=== PATIENT | female | born 1990 | race Caucasian/White ===

== ENCOUNTER 2018-08-28 12:48 | Emergency (ER) | payer MEDICAID, SELFPAY | END 2018-08-28 13:04 | disposition home or self-care (01) | LOC: BURERS 12:48 | DX: K04.7 Periapical abscess without sinus (principal) | CPT/HCPCS: 99282 ==

== ENCOUNTER 2024-12-14 13:41 | Emergency (ER) | payer SELFPAY ==
[2024-12-14 15:19] LABS: #Basophils 0.1 thou/uL (0.0-0.2); #Eosinophils 0.8 thou/uL (0.0-0.7); #Lymphocytes 1.8 thou/uL (1.20-3.40); #Monocytes 0.6 thou/uL (0.11-0.59); #Neutrophils 6.5 thou/uL (1.40-6.50); %Basophils 1.4 % (0.0-1.0); %Eosinophils 8.5 % (0.0-10.0); %Lymphocytes 18.5 % (21.0-51.0); %Monocytes 6.0 % (0.0-10.0); %Neutrophils 65.6 % (42.0-75.0); Hematocrit 26.0 % (36.0-47.0); Hemoglobin 7.7 g/dL (12.0-16.0); Mean Corpuscular Hemoglobin 16.1 pg (27.0-31.0); Mean Corpuscular Volume 54.5 fl (78.0-98.0); Platelet Count 373 10x3/uL (130-400); Red Blood Cell (RBC) Count 4.77 mill/uL (4.20-5.40); White Blood Cell (WBC) Count 9.8 10x3/uL (4.8-10.8)
[2024-12-14 15:30] LABS: ALT (SGPT) 10 U/L (Less than 34); AST (SGOT) 16 U/L (11-34); Albumin 3.4 g/dL (3.1-4.5); Alkaline Phosphatase 92 U/L (40-110); Anion Gap 15 mmol/L (10-20); BUN (Urea Nitrogen) 10 mg/dL (7.0-18.7); Bilirubin, Total 0.7 mg/dL (0.3-1.2); Calc. Creatinine Clearance 0 mL/min (70-130); Calcium 8.5 mg/dL (7.8-10.44); Carbon Dioxide 21 mmol/L (22-29); Chloride 106 mmol/L (98-107); Globulin 3.4 g/dL (2.4-3.5); Glucose 111 mg/dL (70-105); Lipase 13 U/L (8-78); Potassium 3.7 mmol/L (3.5-5.1); Sodium 138 mmol/L (136-145)
[2024-12-14 15:38] LABS: MDiff Complete? YES
[2024-12-14 15:39] LABS: Microcytosis MODERATE=15-30 cells (100X) (0-5/hpf)
== END 2024-12-14 16:15 | disposition home or self-care (01) ==
LOC: BURERS 13:41
DX: J18.9 Pneumonia, unspecified organism (principal); D64.9 Anemia, unspecified; F17.210 Nicotine dependence, cigarettes, uncomplicated
CPT/HCPCS: 36415; 71045; 80053; 83690; 85025